=== PATIENT | female | born 1985 | race Two or more races ===

== ENCOUNTER 2018-07-13 11:24 | Emergency (ER) | payer SELFPAY ==
[~2018-07-13] VITALS: Ht 167.6 cm; Wt 76.0 kg
[2018-07-13 11:36] VITALS: BP 109/67
== END 2018-07-13 13:37 | disposition home or self-care (01) ==
LOC: ED 13:21
DX: S93.492A Sprain of other ligament of left ankle, initial encounter (principal); G89.11 Acute pain due to trauma; X50.1XXA Overexertion from prolonged static or awkward postures, initial encounter; Y93.01 Activity, walking, marching and hiking; Y92.89 Other specified places as the place of occurrence of the external cause; Y99.8 Other external cause status
CPT/HCPCS: 99284